=== PATIENT | male | born 1955 | race Caucasian/White ===

== ENCOUNTER 2018-03-13 16:19 | Emergency (ER) | payer OTHER ==
[2018-03-13] MEDS ORDERED: PROPARACAINE/FLUORESCEIN SOD 5 ML OPHT.BTL OP ONE (17:26)
--- NOTE | 2018-03-13 17:37 | EDPHY ---
H & P Time Seen by Provider: 03/13/18 17:20 HPI/ROS: CHIEF COMPLAINT: Left eye irritation HISTORY OF PRESENT ILLNESS: 62-year-old male contact lens and glasses wear states that 3 days ago he was wearing his contact lenses, was at work at [employer] looking up at some pipes when liquid cleaning solution injured his left eye. He immediately irrigated it. He notes that over the next few days he has developed erythema. His visual acuity remains normal. PHYSICAL EXAM (Prior to examination, patient consented to physical exam, hands were washed and my usual and customary physical exam procedures followed) 1) GENERAL: Well-developed, well-nourished, alert and oriented. Appears to be in no acute distress. 2) HEAD: Normocephalic 3) HEENT: sclera anicteric 4) LUNGS: Breathing comfortably. OCULAR EXAM: Visual Acuity: OD 20/25 OS 20/30 OU 20/25 Pupils:equal round and reactive to light EOMI Lids: no edema or swelling, upper and lower lids were everted and no foreign bodies were visualized, no areas of increased fluorescein uptake. Skin: no proptosis, no periorbital erythema or swelling, no vesicles, no pain with extraocular movements. Conjunctivae: Injected, edematous, pH of 9 prior to irrigation. The pH of the [id number] eye solution patient has been using for the past 2 days was tested also with a pH of 8 Cornea: exam with fluorescein shows no areas of increased uptake, no abrasion, laceration, negative Chandana. Floor seen staining was performed pre and post irrigation Anterior chamber:normal, no hyphema or hypopyon Smoking Status: Never smoked Constitutional: Initial Vital Signs Temperature (C) 36.8 C 03/13/18 17:09 Heart Rate 82 03/13/18 17:09 Respiratory Rate 16 03/13/18 17:09 Blood Pressure 153/98 H 03/13/18 17:09 O2 Sat (%) 94 03/13/18 17:09 O2 Delivery Mode Room Air Allergies/Adverse Reactions: No Known Allergies Allergy (Unverified 03/13/18 17:08) Home Medications: Medication Instructions Recorded Amlodipine Besylate 03/13/18 Aspirin 81mg (*) 03/13/18 Diclofenac Sodium 03/13/18 Losartan-Hctz 100-12.5 mg Tab 03/13/18 Testosterone 03/13/18 prednisoLONE ACET 1% [Pred Forte 2 drops OP QID #1 opht.btl 03/13/18 1% (*)] MDM/Departure - MDM Procedures: Procedure: eye irrigation Indication: Chemical exposure Topical anesthetic drops instilled, Heron lens placed by myself, 1 L of saline instilled via Heron lens. Patient tolerated procedure well. Pre irrigation pH 9, Post irrigation pH is 7 Medications Given: Discontinued Medications Proparacaine HCl/Fluorescein Sodium (Flucaine) 2 drops OP EDNOW ONE Stop: 03/13/18 17:27 Last Admin: 03/13/18 19:13 Dose: 1 drop ED Course/Re-evaluation: This patient has evidence of chemical conjunctivitis. Doubt infectious etiology. No exposure to high speed projectiles. Doubt intraorbital foreign body. Doubt globe compromise. He has no areas of increased uptake on fluorescein staining. Will plan on consultation with Ophthalmology. Phone consultation with on-call ophthalmology Dr. Jamila Kim at 6:30 p.m., He recommended topical the steroid, recommended against topical antibiotics in absence of increased fluorescein uptake. Today is Tuesday, patient will follow up with Ophthalmology tomorrow. This is a work comp injury. Recommend he contact his work comp provider as well. Usual and customary ophthalmological precautions and instructions provided. I saw this patient independently based on established practice protocols. Care of patient under supervision of secondary supervising physician Dr Oropeza with whom I discussed case. - Depart Disposition: Home, Routine, Self-Care Clinical Impression: Chemical conjunctivitis of left eye Condition: Good Instructions: Prednisolone (Into the eye), Conjunctivitis (ED) Additional Instructions: Return to the ER if you develop new or worsening symptoms develop eye pain, change in visual acuity or any other symptoms that concern you. Stand Alone Forms: Work Comp Follow Up Prescriptions: prednisoLONE ACET 1% [Pred Forte 1% (*)] 2 drops OP QID #1 opht.btl Referrals: Jamila Kim MD [Medical Doctor] - 1 day without fail
[2018-03-13 19:25] VITALS: BP 152/81
[2018-03-13] MEDS ORDERED: prednisoLONE ACET 1% 5 ML OPHT.BTL LEFTEYE SCH (21:00)
== END 2018-03-13 19:27 | disposition home or self-care (01) ==
DX: T65.891A Toxic effect of other specified substances, accidental (unintentional), initial encounter (principal); H10.212 Acute toxic conjunctivitis, left eye; Z79.82 Long term (current) use of aspirin